=== PATIENT | female | born 1935 | race Caucasian/White ===

== ENCOUNTER 2016-02-11 09:15 | Outpatient (CLI) | payer MEDICARE, BC ==
[~2016-02-11 09:15] MED LIST: DENOSUMAB 60 MG/ML ML SQ ONE
[2016-02-11] MEDS ORDERED: DENOSUMAB 60 MG/ML ML SQ SCH (10:00)
== END 2016-02-11 09:16 ==
LOC: INF 09:15
DX: M81.0 Age-related osteoporosis without current pathological fracture (principal)
CPT/HCPCS: 96372; J0897

== ENCOUNTER 2016-05-31 18:21 | Emergency (ER) | payer MEDICARE, OTHER ==
--- NOTE | 2016-05-31 19:16 | ED Physician Documentation ---
Fall - HISTORIAN Historian: patient, spouse - HPI Stated Complaint: fall with injury to left wrist Chief Complaint: Fall Additional Information: getting into car stepped on gumball in the street-fell lt wrist lt knee - walks ok no sig pain in knee. pain swelling Onset: just prior to arrival Where: other ([address]) Context: lost balance r: moderate Associated Symptoms:: no loss of consciousness Location of Pain/Injury: face (sl abrasion lt brow-sprained glasses - fixed now- ). denies: head, neck Injury to Right Extremity: none Injury to Left Extremity: wrist - ROS CONST: no problems NEURO: denies: dizziness, anxiety, depression MS/SKIN/LYMPH: weakness, numbness EYES/ENT: none CVS/RESP: none GI/: denies: problems urinating, nausea, vomiting - PAST HX Past History: other (SLE gone now - djc-osteoporosis pericarditis multi kidney stones w/open removal and lithotripsy) Immunizations: UTD Allergies/Adverse Reactions: Allergies Allergy/AdvReac Type Severity Reaction Status Date / Time No Known Allergies Allergy Verified 05/31/16 19:21 - SOCIAL HX Smoking History: non-smoker Alcohol Use: occasionally Drug Use: none - FAMILY HX Family History: no significant history - VITAL SIGNS Vital Signs: Vital Signs Temp Pulse Resp BP Pulse Ox 97.7 F 93 H 20 149/90 96 05/31/16 18:41 05/31/16 18:41 05/31/16 18:41 05/31/16 18:41 05/31/16 18:41 - REVIEWED ASSESSMENTS Nursing Assessment Reviewed: Yes Vitals Reviewed: Yes ED Results Lab/Radiology - Radiology Radiology Impressions: poss ligh avulsion lt wrist probable ulna - Orders Orders: ED Orders Category Date Time Status WRIST 3 VIEWS OR MORE [RAD] Stat Exams 05/31/16 Ordered Fall Physical Exam - Physical Exam General Appearance: mild distress, moderate distress Head: non-tender, no swelling. No: no obvious injury (slight abrasion lt lat eye brow-no bleeding-non tender) Neck: non-tender, painless ROM Eye: TRAM, EOMI ENT: nml external inspection, no dental injury, no oral injury, airway nml Resp/CVS: chest non-tender, no ecchymosis, breath sounds nml, no resp. distress , heart sounds nml. No: rib tenderness, rib palpable fracture, subcutaneous emphysema, splinting, decreased breath sounds, wheezes, rales, rhonchi Abdomen: soft, non-tender Neuro: oriented x3, CN's nml as tested, sensation nml, motor nml, mood/affect nml, other (deformity ulnar side wrist) Back: normal inspection, no CVA tenderness Extremities: pelvis stable, hips non-tender, no pedal edema. No: atraumatic Joint: No: joints nml (lt wrist) - [place] Coma Score Eyes Open: Spontaneous Speech: Oriented Motor: Obeys Commands Discharge Clincal Impression: fall w/ ligh sprain lt wrist Additional Instructions: see pcp or orthopedics--wear cock up splint Condition: Good Decision to Admit: NO Decision Time: 19:46
[2016-05-31 23:13] VITALS: BP 147/89
--- NOTE | 2016-06-01 06:55 | Diagnostic Imaging Report ---
KEISHA KANG [facility] [address] [facility] [address] [address] Report Submission Date: May 31, 2016 7:34:45 PM CDT Patient Study Name: JURGEN RIOS Date: May 31, 2016 7:15:02 PM CDT Modality Type: CR Gender: F Description: UPPER EXTREMITY : 31 Institution: [facility] Physician: KEISHA KANG Left wrist 3 views History: Pain after fall Findings: Distal radius deformity is more likely old than acute. 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 The carpal bones and distal ulna are intact. Impression: Probably old distal radius fracture deformity. This is less likely acute unless the patient has no history of prior fracture. Electronically signed on May 31, 2016 7:34:45 PM CDT by: Varinder CUNHA
== END 2016-05-31 20:00 ==
LOC: ED 18:21
DX: S63.502A Unspecified sprain of left wrist, initial encounter (principal); W19.XXXA Unspecified fall, initial encounter; Y93.9 Activity, unspecified; Y99.9 Unspecified external cause status
CPT/HCPCS: 73110; L3908

== ENCOUNTER 2016-09-10 08:34 | Outpatient (CLI) | payer MEDICARE, OTHER ==
[2016-09-10] MEDS ORDERED: DENOSUMAB 60 MG/ML ML SQ ONE (09:00)
== END 2016-09-10 08:35 ==
LOC: INF 08:34
PROVIDERS: ATTEND Family Medicine
DX: M81.0 Age-related osteoporosis without current pathological fracture (principal)
CPT/HCPCS: 96372; J0897

== ENCOUNTER 2017-03-15 08:12 | Outpatient (CLI) | payer MEDICARE, OTHER ==
[2017-03-15] MEDS ORDERED: DENOSUMAB 60 MG/ML ML SQ ONE (08:30)
[2017-03-15] MEDS ORDERED: DENOSUMAB 60 MG/ML ML SQ SCH (09:00)
== END 2017-03-15 08:14 ==
LOC: INF 08:12
PROVIDERS: ATTEND Family Medicine
DX: M81.0 Age-related osteoporosis without current pathological fracture (principal)
CPT/HCPCS: 96372; J0897

== ENCOUNTER 2017-09-13 08:51 | Outpatient (CLI) | payer MEDICARE, OTHER ==
[2017-09-13] MEDS ORDERED: DENOSUMAB 60 MG/ML SYRINGE SQ ONE (09:00)
[2017-09-13] MEDS ORDERED: DENOSUMAB 60 MG/ML SYRINGE SQ SCH (09:00)
== END 2017-09-13 08:52 ==
LOC: INF 08:51
PROVIDERS: ATTEND Family Medicine
DX: M81.0 Age-related osteoporosis without current pathological fracture (principal)
CPT/HCPCS: 96372; J0897

== ENCOUNTER 2018-03-27 14:04 | Outpatient (CLI) | payer MEDICARE, OTHER ==
[~2018-03-27 14:04] MED LIST changes: +DENOSUMAB (NF) 60 MG/ML SYRINGE SQ ONE; -DENOSUMAB 60 MG/ML ML SQ ONE
== END 2018-03-27 14:06 ==
LOC: INF 14:04
PROVIDERS: ATTEND Family Medicine
DX: M81.0 Age-related osteoporosis without current pathological fracture (principal)
CPT/HCPCS: 96372; J0897

== ENCOUNTER 2018-09-26 08:13 | Outpatient (CLI) | payer MEDICARE, OTHER ==
[2018-09-26] MEDS ORDERED: DENOSUMAB (NF) 60 MG/ML SYRINGE SQ ONE (09:00)
== END 2018-09-26 09:02 ==
LOC: INF 08:13
PROVIDERS: ATTEND Family Medicine
DX: M81.0 Age-related osteoporosis without current pathological fracture (principal)
CPT/HCPCS: J0897

== ENCOUNTER 2019-01-19 12:38 | Outpatient (CLI) | payer MEDICARE, OTHER ==
--- NOTE | 2019-01-19 23:25 | Diagnostic Imaging Report ---
PATIENT MR#: [id number] PATIENT PATIENT NAME: KING SEAMAN DATE OF : 1935 REFERRING PHYSICIAN: Jaden Marie EXAM DATE: 01/19/2019 ACCESSION NUMBER: [id number] EXAM DESCRIPTION: DEXA DUAL ENERGY X-RAY ABSORPTIOMETRY (DXA) A DXA scan was performed on January 19, 2019 using a [employer] densitometer. IMPRESSION: Based on BMD diagnosis is consistent with osteoporosis (based on WHO criteria). Fracture risk is high . Pharmacologic treatment is advised. Follow-up bone density test is recommended in one year to monitor response. INDICATION: Postmenopausal Technical Quality: Diagnostic RESULTS: Lumbar Spine The BMD measured in the L1-L4 region is 1.094 g/cm2: T-score -0.7 Femoral Neck The BMD measured at the right femoral neck is 0.673 g/cm2: T-score -2.6 Interval Change: Today's examination is compared to the technically similar prior study from September 01, 2016. In the in terim, there has been a mild decrease from previous measurement of 0.702 g/cm2, at the right femoral neck. There is mi ld increase from previous measurement of 0.965, at the L1-4 region. Read by: Dr. Jed Smiley Transcribed by: Jed Smiley Transcribed Date: 01/19/2019 11:24:30 PM Electronically signed by: Dr. Jed Smiley Date signed: 01/19/2019 11:24:30 PM
== END 2019-01-19 12:48 ==
LOC: RAD 12:38
PROVIDERS: ATTEND Family Medicine
DX: M81.0 Age-related osteoporosis without current pathological fracture (principal)
CPT/HCPCS: 77080